=== PATIENT | male | born 1980 | race Caucasian/White ===

== ENCOUNTER 2016-12-27 09:49 | Emergency (ER) | payer BC ==
[2016-12-27] MEDS ORDERED: DEXAMETHASONE 10 MG/ML VIAL PO STA (11:06)
[2016-12-27] MEDS ORDERED: DEXAMETHASONE 10 MG/ML VIAL ONE (11:09)
[2016-12-27] MEDS ORDERED: CHERRY SYRUP 10 ML UDC PO ONE (11:09)
== END 2016-12-27 11:40 | disposition home or self-care (01) ==
DX: M76.61 Achilles tendinitis, right leg (principal)
CPT/HCPCS: 73610; 99283; A9270

== ENCOUNTER 2017-08-08 10:21 | Outpatient (CLI) | payer BC ==
--- NOTE | 2017-08-08 17:44 | XRAY Report ---
CHEST, TWO VIEWS: 08/08/2017 HISTORY: Right-sided pain. COMPARISON: None. FINDINGS: Normal heart size. Clear lungs. No pleural fluid or pneumothorax. Unremarkable thoracic spine. IMPRESSION: NEGATIVE TWO-VIEW CHEST X-RAY. JOB #: [id number] EXT JOB #:[id number]
--- NOTE | 2017-08-08 17:45 | XRAY Report ---
RIGHT RIBS: 08/08/2017 HISTORY: Right chest pain. COMPARISON: None. Two views of the right ribs are performed. No definite acute fracture, periosteal reaction, bone kira truction, or other abnormality. IMPRESSION: NEGATIVE TWO VIEW RIGHT RIBS. IF SYMPTOMS PERSIST, CONSIDER FOLLOWUP IMAGING IN 7-14 DA YS. JOB #: [id number] EXT JOB #:[id number]
== END 2017-08-08 10:22 | disposition home or self-care (01) ==
LOC: DI.S 10:21
PROVIDERS: ATTEND Physician Assistant
DX: R07.89 Other chest pain (principal)
CPT/HCPCS: 71020

== ENCOUNTER 2017-09-04 13:17 | Outpatient (CLI) | payer BC ==
--- NOTE | 2017-09-04 14:27 | XRAY Report ---
THREE-VIEW RIGHT HAND: 09/04/2017 CLINICAL INDICATION: Injury, pain. FINDINGS: AP, lateral, oblique views of the right hand demonstrate no evidence of fracture or disloc ation. The joint spaces are preserved. No radiopaque foreign body is seen in the soft tissues. IMPRESSION: NORMAL RIGHT HAND. JOB #: [id number] EXT JOB #:[id number]
== END 2017-09-04 13:18 | disposition home or self-care (01) ==
LOC: DI.S 13:17
PROVIDERS: ATTEND Nurse Practitioner Family
DX: S69.91XA Unspecified injury of right wrist, hand and finger(s), initial encounter (principal)

== ENCOUNTER 2019-10-10 14:35 | Outpatient (CLI) | payer BC ==
--- NOTE | 2019-10-11 10:30 | XRAY Report ---
Reason: PAIN IN RIGHT SHOULDER Procedure Date: 10/10/2019 Accession Number: [id number] / [id number] Procedure: XRS - Shoulder 2 View RT CPT Code: Final Report FULL RESULT: EXAM: RIGHT SHOULDER RADIOGRAPHY EXAM DATE: 10/10/2019 03:02 PM. CLINICAL HISTORY: PAIN IN RIGHT SHOULDER. COMPARISON: RIBS 2 VIEW RT 08/08/2017 10:56 AM. TECHNIQUE: 3 views. FINDINGS: Bones: Normal. No fracture or bone lesion. Joints: The glenohumeral and acromioclavicular joints are normal. Soft tissues: The visualized hemithorax is unremarkable. No soft tissue swelling. IMPRESSION: Negative shoulder radiography. [facility]
== END 2019-10-10 14:36 | disposition home or self-care (01) ==
LOC: DI.S 14:35
PROVIDERS: ATTEND Registered Nurse
DX: M25.511 Pain in right shoulder (principal)

== ENCOUNTER 2020-11-04 12:17 | Outpatient (CLI) | payer BC | END 2020-11-04 12:18 | disposition home or self-care (01) | LOC: COV 12:17 | PROVIDERS: ATTEND Family Medicine | DX: Z20.828 Contact with and (suspected) exposure to other viral communicable diseases (principal) ==